=== PATIENT | male | born 1995 | race African-American/Black ===

== ENCOUNTER 2018-03-20 18:28 | Emergency (ER) | payer MEDICAID ==
[2018-03-20 18:52] VITALS: Ht 188 cm
[2018-03-20 20:30] VITALS: BP 130/78
== END 2018-03-20 20:30 | disposition home or self-care (01) ==
LOC: ED 18:28
DX: J02.8 Acute pharyngitis due to other specified organisms (principal); Z88.2 Allergy status to sulfonamides
CPT/HCPCS: J0561; J1100; J1885